=== PATIENT | female | born 1955 | race Caucasian/White ===

== ENCOUNTER → 2020-04-12 10:35 | Outpatient (CLI) | payer OTHER, SELFPAY ==
--- NOTE | ~2020-04-12 | MM_ITS ---
EXAMINATION: MM screening [facility] BI w divina HISTORY: Screening mammogram TECHNIQUE: Craniocaudal and mediolateral oblique 3-D tomosynthesis images were obtained and synthetic 2-D images were generated. CAD analysis was submitted and interpreted. COMPARISON: 11/28/2018, 11/01/2017, 08/01/2016 BREAST PARENCHYMAL COMPOSITION: The breasts are heterogeneously dense, which may obscure small masses . FINDINGS: There is no evidence of suspicious mass, calcification, or architectural distortion to sugg est malignancy in either breast. There has been no suspicious interval change. IMPRESSION: 1. No mammographic evidence of malignancy. 2. Recommend routine screening mammography in one year. BI-RADS Category 1: Negative Reviewed, dictated and finalized at location A.
== END ==
PROVIDERS: Visit Provider Nurse Practitioner
DX: Z12.31 Encounter for screening mammogram for malignant neoplasm of breast (principal)
CPT/HCPCS: 77063; 77067

== ENCOUNTER → 2020-10-25 10:05 | Outpatient (CLI) | payer OTHER, SELFPAY ==
--- NOTE | ~2020-10-25 | XR_ITS ---
EXAMINATION: XR hip RT min 2V DATE: 10/25/2020 10:27 INDICATION: Low back and right hip pain TECHNIQUE: Anteroposterior, frog leg, and cross-table lateral views of right hip were obtained. COMPARISON: None. FINDINGS: Bone alignment is normal. There is no fracture. Mild osteoarthritis is noted in the hip. Th ere are phleboliths of the pelvis. The soft tissues are otherwise unremarkable. IMPRESSION: 1. Mild hip osteoarthritis. Reviewed, dictated and finalized at location A. E DEFECT CHARTING CLERK IMPRESSION: 1. Mild hip osteoarthritis.
--- NOTE | ~2020-10-25 | XR_ITS ---
EXAMINATION: XR lumbar spine 2-3V DATE: 10/25/2020 10:27 INDICATION: Low back pain TECHNIQUE: Anteroposterior and lateral views of the lumbar spine, and cone-down lateral view of the l umbosacral junction were obtained. COMPARISON: None. FINDINGS: There is no fracture, dislocation, or subluxation. The vertebral body heights are normal. T here is moderate loss of intervertebral disc space height at L5-S1 and mild loss of intervertebral di sc space height at L2-3. The bowel gas pattern is normal. There are phleboliths of the pelvis. IMPRESSION: 1. Mild lumbar spondylosis without acute findings. Reviewed, dictated and finalized at location A. /VAULT SUPERVISOR
== END ==
PROVIDERS: PCP Emergency Medicine; Visit Provider Emergency Medicine
DX: M54.5 Low back pain (principal); M25.551 Pain in right hip; M16.11 Unilateral primary osteoarthritis, right hip; M47.816 Spondylosis without myelopathy or radiculopathy, lumbar region
CPT/HCPCS: 72100; 73502

== ENCOUNTER → 2021-10-02 10:52 | Outpatient (CLI) | payer OTHER, SELFPAY ==
--- NOTE | ~2021-10-02 | MM_ITS ---
EXAMINATION: MM screening [facility] w div[facility] HISTORY: Screening TECHNIQUE: Craniocaudal and mediolateral oblique 3-D tomosynthesis images were obtained and synthetic 2-D images were generated. CAD analysis was submitted and interpreted. COMPARISON: Comparison to multiple prior studies sequentially, with oldest reviewed study dated 07/09. BREAST PARENCHYMAL COMPOSITION: Breast composed of scattered areas of fibroglandular density FINDINGS: There is no evidence of suspicious mass, calcification, or architectural distortion to sugg est malignancy in either breast. There has been no suspicious interval change. IMPRESSION: 1. No mammographic evidence of malignancy. 2. Recommend routine screening mammography in one year. BI-RADS Category 1: Negative Reviewed, dictated and finalized at location A. ASSEMBLER
== END ==
PROVIDERS: Visit Provider Obstetrics & Gynecology Gynecology
DX: Z12.31 Encounter for screening mammogram for malignant neoplasm of breast (principal)
CPT/HCPCS: 77063; 77067

== ENCOUNTER → 2022-03-03 15:35 | Outpatient (CLI) | payer OTHER, SELFPAY ==
--- NOTE | ~2022-03-03 | DEXA_ITS ---
Bone Density Report Name: CHULA WALTERS Age: 66 Sex: Female Ethnicity: White Date of : 1955 Indication: postmenopausal; screening for osteoporosis; height loss; Referring Provider: JEFFERSON HENSON Study: Bone densitometry was performed. Exam Date: March 03, 2022 Accession number: [id number] Bone Density: Region BMD T-score Z-score Classification AP Spine (L1-L4) 0.917 -1.2 0.6 Osteopenia Femoral Neck (Left) 0.632 -2.0 -0.5 Osteopenia Total Hip (Left) 0.797 -1.2 0.0 Osteopenia Femoral Neck (Right) 0.673 -1.6 -0.1 Osteopenia Total Hip (Right) 0.820 -1.0 0.2 Normal Total Hip Mean 0.809 -1.1 0.1 Osteopenia World Health Organization criteria for BMD impression classify patients as: Normal (T-score at or above -1.0), Osteopenia (T-score between -1.0 and -2.5), or Osteoporosis (T-score at or below -2.5). 10-year Fracture Risk(1): Major Osteoporotic Fracture 10% Hip Fracture 1.4% Reported Risk Factors: [place] (), Neck BMD=0.632, BMI=27.3 (1) FRAX(R) Version 3.08. Fracture probability calculated for an untreated patient. Fracture probability may be lower if the patient has received treatment. Clinical Information Provided by Patient: Has used the following medications: Vitamin D, Calcium Patient maximum height was 66 Menopause Age: 57 Onset of menses at age 14 Number of children 1 Missed period for more than 6 months in a row Impression: The patient has low bone mass, based on the Left Femoral Neck T-score. The patient has an estimated ten-year risk of hip fracture of 1.4% and an estimated ten-year risk of major fracture of 10%, based on the WHO FRAX algorithm. Discussion: BONE DENSITY IS LOW AT ONE OR MORE SKELETAL SITES. This patient's lowest T-score is low at one or more skeletal sites. It meets the World Health Organization's (WHO) criteria for ?low bone mass? (T-score between -1.0 and -2.5). The patient's 10-year risk of fracture as calculated by FRAX is less than the threshold where pharmacological therapy is recommended by the National Osteoporosis Foundation (NOF). However, all treatment decisions require clinical judgment and consideration of individual patient factors, including patient preferences, comorbidities, previous drug use, risk factors not captured in the FRAX model (e.g., frailty, falls, vitamin D deficiency, increased bone turnover, interval significant decline in bone density) and possible under or overestimation of fracture risk by FRAX. The patient should follow a healthful lifestyle (good nutrition with adequate calcium and vitamin D, and appropriate weight-bearing exercise). Follow-Up: Consider repeating this study in 2 to 3 years to reassess this patient's status, or sooner if there is some new clinical indication. Reported by: ARELIS on 03/03/2022
== END ==
PROVIDERS: PCP Obstetrics & Gynecology Gynecology; Visit Provider Obstetrics & Gynecology Gynecology
DX: Z78.0 Asymptomatic menopausal state (principal); M85.88 Other specified disorders of bone density and structure, other site; M85.852 Other specified disorders of bone density and structure, left thigh; M85.851 Other specified disorders of bone density and structure, right thigh
CPT/HCPCS: 77080

== ENCOUNTER → 2023-03-11 12:27 | Outpatient (CLI) | payer MEDICARE, OTHER, SELFPAY ==
--- NOTE | ~2023-03-11 | MM_ITS ---
EXAMINATION: MM screening [facility] BI w divina HISTORY: Screening mammogram TECHNIQUE: Craniocaudal and mediolateral oblique 3-D tomosynthesis images were obtained and synthetic 2-D images were generated. CAD analysis was submitted and interpreted. COMPARISON: 10/02/2021, 04/12/2020, 11/28/2018 BREAST PARENCHYMAL COMPOSITION: The breasts are heterogeneously dense, which may obscure small masses . FINDINGS: No suspicious mass, calcification, or architectural distortion are identified in either hunter ast to suggest malignancy. There has been no suspicious interval change. IMPRESSION: 1. No mammographic evidence of malignancy. 2. Recommend routine screening mammography in one year. BI-RADS Category 1: Negative Reviewed, dictated and finalized at location A.
== END ==
PROVIDERS: PCP Nurse Practitioner; Visit Provider Nurse Practitioner
DX: Z12.31 Encounter for screening mammogram for malignant neoplasm of breast (principal)
CPT/HCPCS: 77063; 77067

== ENCOUNTER 2024-09-29 09:47 | Outpatient (CLI) | payer MEDICARE, OTHER, SELFPAY ==
--- OUTSIDE RECORDS SUMMARY | 2024-09-29 10:02 | XMS_ITS | Encounter Summary ---
Author Organization [facility] Address [address] [place] [id number] Care Team Providers Care Coding Clerks Supervisor Name Role Phone Adilene Dillard MD Primary Care Provider Encounter Details Date Type Department Care Team (Late st Contact Info) Description 11/01/2023 CarZumer Message Enc [facility] Medical [facility] - [address] [place], [place] [id number] [facility] test results Social History Tobacco Use Types Packs/Day Years Used Date Smoking Tobacco: Former Cigarettes 1 8 - 1982 Passive Smoke Exposure: Never Smokeless Tobacco: Never Comments:Counseled by Dr. Karyna fagan. Alcohol Use Standard Drinks/Week Comments Not Currently 0 (1 standard drink = 0.6 oz pur e alcohol) PHQ-2 Answer Date Recorded Patient Health Questionnaire-2 Score 2 10/15/2023 Comments Unknown Sex and Gender Information Value Date Recorded Sex Assigned at Female 11/05/2023 10:40 AM CDT Legal Sex Female 10:36 AM NAIL EXPERT Gender Identity Female 11/05/2023 10:40 AM CDT Sexual Orientation Straight 11/05/2023 10 :40 AM CDT documented as of this encounter Plan of Treatment Upcoming Encounters Date Type Department Care Team (Late st Contact Info) Description 11/06/2024 10:20 AM CDT Office Visit [facility] Medical [facility] - [address] [place], [place] [id number] Adilene Dillard MD [address] [place] [address] [address] [place], [place] [id number] documented as of this encounter Visit Diagnoses Not on filedocumented in this encounter Additional Health Concerns Assessment Noted Time PHQ-9 Depression Total Score: 5 10/15/19 24 11:33 AM NAIL EXPERT documented as of this encounter Care Teams Coding Clerks Supervisor Relationship Specialty Start Date End Date Adilene Dillard MD [facility] [address] [address] PCP - General INTERNAL MEDICINE 08/30/23 documented as of this encounter
--- OUTSIDE RECORDS SUMMARY | 2024-09-29 10:02 | XMS_ITS | Patient Health Summary ---
Author Organization [facility] Address [address] [place] [address] Care Team Providers Care Tool Maker Apprentice Name Role Phone Mayra Aguilar MD Primary Care Provider Note from [facility],non-owned Affiliates and Associated Physician Practices is amultiple site organization consisting of ambulatory clinics and hospital sitesin [place], [place], [place] and [place]. This disclosure is being madepursuant to the Care Everywhere program and may not contain all information available regarding this patient. Last updated 18.[facility] Allergies * Meperidine(Nausea and/or Vomiting) -High Criticality Medications * Be aware that medications may not be up to date on this document. Alwaysverify current medications with the patient. * norethindrone-ethinyl estradiol (JEVANTIQUE) 1-5 MG-MCG tablet Take 1 Tab by mouth once daily. * diclofenac sodium (VOLTAREN) 75 MG tablet(Started 07/17/2011) Take 1 Tab by mouth 2 times daily. May resume on 07/27 * cyclobenzaprine (FLEXERIL) 10 MG tablet(Started 07/17/2011) Take 1 Tab by mouth every 8 hours as needed for Muscle Spasms. * Escitalopram Oxalate (LEXAPRO PO) Active Problems No known active problems Social History Tobacco Use Types Packs/Day Years Used Date Smoking Tobacco: Former Cigarettes 0.5 10 Smokeless Tobacco: Never Alcohol Use Standard Drinks/Week Comments Yes 0 (1 standard drink = 0.6 oz pur e alcohol) rarely Sex and Gender Information Value Date Recorded Sex Assigned at Not on file Gender Identity Not on file Sexual Orientation Not on file Last Filed Vital Signs Vital Sign Reading Time Taken Comments Blood Pressure 120/70 03/28/2018 2:48 PM CDT Pulse 73 03/28/2018 2:48 PM CDT Temperature 36.8 C (98.2 F) 03/28/2018 2:48 PM CDT Respiratory Rate 16 03/28/2018 2:48 PM CDT Oxygen Saturation 98% 03/28/2018 2:48 PM CDT Inhaled Oxygen Concentration - - Weight 64.9 kg (143 lb) 03/28/2018 2:48 PM CDT Height 167.6 cm (5' 6 ) 03/28/2018 2:48 PM CDT Body Mass Index 23.08 03/28/2018 2:48 PM CDT Procedures * IMAGING/RADIOLOGY/XRAY RESULTS ORDER(Performed 07/21/2011) * LAB RESULTS ORDER(Performed 07/19/2011) * XR LUMBAR SPINE IN OR 1VW(Performed 07/16/2011) Performed for Back pain * CARDIAC EKG ORDER(Performed 07/12/2011) * TYPE SCRN XMATCH RBC X2(Performed 07/08/2011) Performed for Other specified pre-operative examination * IMAGING/RADIOLOGY/XRAY RESULTS ORDER(Performed 06/10/2011) * IMAGING/RADIOLOGY/XRAY RESULTS ORDER(Performed 06/03/2011) Results * IMAGING/RADIOLOGY/XRAY RESULTS ORDER (07/21/2011 1:46 PM PLANTING MATERIAL CARRIER) Only the most recent of3 resultswithin the time period is included. Anatomical Region Laterality Modality Other Narrative 07/19/2011 4:21 PM PLANTING MATERIAL CARRIER A scan was deleted from the Results section by S Interface [[id number]] on 07/21/2011 at 1:46 PM (File: [id number]) Transcriptions Document, Scanned - 07/21/2011 1:46 PM CST Scanned Document IMAGING * LAB RESULTS ORDER (07/19/2011 4:21 PM PLANTING MATERIAL CARRIER) Narrative Transcriptions Document, Scanned - 07/19/2011 4:21 PM CST Scanned Document LAB - THERAPEUTIC DR UG MONITORING ORDERABLES * XR SPINE LUMBAR SINGLE VIEW (07/16/2011 1:57 PM PLANTING MATERIAL CARRIER) Anatomical Region Laterality Modality Spine Radiographic Sylvia ging 07/16/2011 2:03 PM PLANTING MATERIAL CARRIER Narrative 07/16/2011 2:09 PM PLANTING MATERIAL CARRIER INDICATION: Low back pain FINDINGS: Crosstable lateral view of the lumbar spine is obtained intraoperatively. This demonstrates a radiopaque surgical marker at the most caudal fully developed disc space. Disc space narrowing is present at this level. Procedure Note Jolie Cruz MD - 07/16/2011 INDICATION: Low back pain FINDINGS: Crosstable lateral view of the lumbar spine is obtained intraoperatively. This demonstrates a radiopaque surgical marker at the most caudal fully developed disc space. Disc space narrowing is present at this level. Blair Muñoz MD DIAGNOSTIC IMAGING O RDERABLES * CARDIAC EKG ORDER (07/12/2011 1:54 PM PLANTING MATERIAL CARRIER) Narrative Transcriptions Document, Scanned - 07/12/2011 1:54 PM CST Scanned Document CARDIAC SERVICES ORD ERABLES * TYPE SCRN XMATCH RBC X2 (07/08/2011 10:06 AM PLANTING MATERIAL CARRIER) ABO Rh A Pos [facility] Antibody Screen Neg Negative [facility] Number of Units 2 [facility] BLOOD SPECIMEN / Unknown 07/08/2011 10:06 AM PLANTING MATERIAL CARRIER 07/08/2011 11:36 AM PLANTING MATERIAL CARRIER Blair Muñoz MD LAB - BLOOD BANK ORD ERABLES [facility] [address] [place] [address] Care Teams Tool Maker Apprentice Relationship Specialty Start Date End Date Mayra Aguilar MD [address] [facility] [address] [place] [phone] PCP - General Family Medicine 07/01/11
--- OUTSIDE RECORDS SUMMARY | 2024-09-29 10:02 | XMS_ITS | Clinical Summary ---
Author Organization [facility] Address [address] [place] [address] Care Team Providers Care Mail Handler Equipment Operator Name Role Phone Mayra Aguilar MD Primary Care Provider Source Comments [facility] Affiliates and Associated Physician Practices is amultiple site organization consisting of ambulatory clinics and hospital sitesin [place], [place], [place] and [place]. This disclosure is being madepursuant to the Care Everywhere program and may not contain all information available regarding this patient. Last updated 18.[facility] Allergies Active Allergy Reactions Criticality Noted Date Comments Meperidine Nausea and/or Vomiting High 07/08/2011 Medications * Be aware that medications may not be up to date on this document. Alwaysverify current medications with the patient. Medication Sig Dispensed Refills Start Date End Date Status norethindrone-ethinyl estradiol (JEVANTIQUE) 1-5 MG-MCG tablet Take 1 Tab by mouth once daily. Active diclofenac sodium (VOLTAREN) 75 MG tablet Take 1 Tab by mouth 2 times daily. May resume on 07/27 60 Tab 07/17/2011 Active cyclobenzaprine (FLEXERIL) 10 MG tablet Take 1 Tab by mouth every 8 hours as needed for Muscle Spasms. 42 0 07/17/2011 Active Escitalopram Oxalate (LEXAPRO PO) Active Active Problems No known active problems Family History Medical History Relation Name Comments Migraine Brother 4 Asthma Brother 5 Heart Failure Father Migraine Father Diabetes Maternal Grandfather Stroke Maternal Grandfather Cancer Maternal Grandmother Heart Failure Maternal Grandmother Arthritis - Osteo Mother Arthritis - Rheumatoid Mother Migraine Sister 2 Relation Name Status Comments Brother 1 Alive Brother 2 Alive Brother 3 Alive Brother 4 Brother 5 Father Maternal Grandfather Maternal Grandmother Mother Sister 1 Alive Sister 2 Social History Tobacco Use Types Packs/Day Years [...] Mass Index 23.08 03/28/2018 2:48 PM CDT Plan of Treatment Health Maintenance Due Date Last Done Comments BONE DENSITY TESTING 1955 COLOGUARD (AGES 45-75) - COL ON CA SCREENING 1955 COLON MONITORING 1955 COLONOSCOPY - COLON CA SCREENING 1955 CT COLONOGRAPHY - COLON CA SCREENING 1955 Colorectal Cancer Screening 1955 FIT - COLON CA SCREENING 1955 FLEX SIG - COLON CA SCREENING 1955 LIPID TESTING 1955 MAMMOGRAM 1955 HEPATITIS C SCREENING 06/26/1975 DTAP/TDAP/TD VACCINES (1 - Tdap) 1976 PNEUMOCOCCAL VACCINE 50+ (1 of 1 - PCV) 2007 ZOSTER VACCINE (1 of 2) 2007 COVID-19 VACCINE ( - 2023-2 5 season) 2024 INFLUENZA VACCINE (#1) 2024 DEPRESSION SCREENING 08/16/2024 Respiratory Syncytial Virus (RSV) Vaccine Pt: or over 60 yrs (1 - 1-dose 75+ series) 2032 HEPATITIS B VACCINE Aged Out No longe r eligible based on patient's age to complete this topic HIB VACCINE Aged Out No longer eligi ble based on patient's age to complete this topic HPV VACCINE Aged Out No longer eligi ble based on patient's age to complete this topic MENINGOCOCCAL (Group B) VACCINE Aged Out No longer eligible based on patient's age to complete this topic MENINGOCOCCAL VACCINE Aged Out No liliana deana eligible based on patient's age to complete this topic Advance Directives * FULL RESUSCITATION (Latest Code Status on File) Date Activated Date Inactivated Comments 07/16/2011 6:36 PM 07/18/2011 1:03 AM Care Teams Mail Handler Equipment Operator Relationship Specialty Start Date End Date Mayra Aguilar MD [address] [place] [address] [address] [place] [phone] PCP - General Family Medicine 07/01/11
--- OUTSIDE RECORDS SUMMARY | 2024-09-29 10:02 | XMS_ITS | Clinical Summary ---
Author Organization [facility] Address [address] [place] [address] Care Team Providers Care Cone Operator Name Role Phone Adilene Dillard MD Primary Care Provider [phone] Allergies Active Allergy Reactions Criticality Noted Date Comments Meperidine Nausea and Vomiting High 07/08/2011 Morphine Sulfate Headache Low 01/05/2019 Propranolol Other (see comment) 11/04/2023 Just did not feel well Medications hydrOXYzine (VISTARIL) 25 MG capsuleIndication s:BRANDON (generalized anxiety disorder) Take 1 capsule (25 mg total) by mouth daily. 90 capsule 1 4 Active vitamin D2, ergocalciferol, (DRISDOL) 1.25 mg capsuleIndication s:Vitamin D deficiency Take 1 capsule (1.25 mg total) by mouth every 7 days. 12 capsule 3 4 Active escitalopram (LEXAPRO) 20 MG tabletIndications :Mild episode of recurrent major depressive disorder (CMS/HCC),BRANDON (generalized anxiety disorder) Take 1 tablet (20 mg total) by mouth daily. 90 tablet 1 4 Active triamcinolone (KENALOG) 0.1 % creamIndications: Flexural eczema Apply topically 2 (two) times daily. 453.6 g 4 Active losartan (COZAAR) 25 MG tabletIndications :Primary hypertension Take 1 tablet (25 mg total) by mouth daily. 90 tablet 1 4 Active Active Problems Problem Noted Date Diagnosed Date Primary hypertension 10/15/2023 Anxiety 01/05/2019 Encounters Date Type Department Care Team Description 08/02/2024 Telephone [facility] Medical Group Multispecialty Care - [address] [place] [address] Adilene Dillard MD Appointment Request (AWV- Left message) from Last 3 Months Immunizations Name Administration Dates Next Due Influenza (Generic) 06/09/2021,06/04/2014,2012 Influenza Adult (Generic) 04/21/2024,06/15/2023, 07/13/2022,06/24/2015 Pneumococcal (Pneumovax 23) 10/29/2023 Shingrix 12/15/2021,10/17/2021 Tdap (Generic) 01/23/2019 Family History Medical History Relation Comments Heart Disease Father Hypertension Father Cancer Maternal Grandmother Diabetes Paternal Grandfather Relation Status Comments Father Maternal Grandmother Paternal Grandfather Social History Tobacco Use Types Packs/Day Years Used Date Smoking Tobacco: Former Cigarettes 1982 Passive Smoke Exposure: Never Smokeless Tobacco: Never Tobacco Cessation:Counseling Given: Yes Comments:Counseled by Dr. Dillard. 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 Gender Identity Female 11/05/2023 10:40 AM CDT Sexual Orientation Straight 11/05/2023 10 :40 AM CDT Last Filed Vital Signs Vital Sign Reading Time Taken Comments Blood Pressure 134/82 06/13/2024 11:50 AM CDT Pulse 68 06/13/2024 11:39 AM CDT Temperature 36.3 C (97.3 F) 06/13/2024 11:39 AM CDT Respiratory Rate 18 06/13/2024 11:39 AM CDT Oxygen Saturation 99% 06/13/2024 11:39 AM CDT Inhaled Oxygen Concentration - - Weight 66.4 kg (146 lb 6.4 oz) 06/13/2024 11:39 AM CDT Height 166.4 cm (5' 5.5 ) 06/13/2024 11:39 AM CD T Body Mass Index 23.99 06/13/2024 11:39 AM CDT Plan of Treatment Upcoming Encounters Date Type Department Care Team (Late st Contact Info) Description 11/06/2024 10:20 AM CDT Office Visit [facility] Medical Group Multispecialty Care - [address] [place] [address] Adilene Dillard MD [address] [place] [address] Health Maintenance Due Date Last Done Comments Mammogram Screening 1997 Annual Medicare Wellness Visit 2022 Dexa Scan (General) 2022 COVID-19 Vaccine ( season) 2024 06/15/2023, 07/13/2022, 01/09/2022, Additional history exists PHQ-2 (Physician Hegins) 08/16/2024 04/21/2024 Pneumococcal Vaccine: 65+ Years (2 of 2 - PCV) 10/28/2024 10/29/2023 Colorectal Cancer Screening FIT-DNA (3 Years) 03/03/2027 03/03/2024, 03/03/2024 DTaP, Tdap and Td Vaccines (2 - Td or Tdap) 01/23/2029 01/23/2019 RSV Immunization or 60+ Years (1 - 1-dose 75+ series) 2032 Zoster Vaccines Completed 12/15/2021, 10/17/2021 Hepatitis C Completed 10/29/2023 Influenza Adult Completed 04/21/2024, 05/18, 07/13/2022, Additional history exists Meningococcal B Vaccine Aged Out No l onger eligible based on patient's age to complete this topic Meningococcal Vaccine Aged Out No liliana deana eligible based on patient's age to complete this topic RSV Immunizations Under 20 Months Aged Out No longer eligible based on patient's age to complete this topic Procedures Procedure Name Priority Date/Time Associated Diagnosis Comments COLOGUARD (EXACT SCIENCE) Routine 03/03/2024 10:00 AM CDT Screen for colon cancer HEPATITIS C ANTIBODY Routine 10/29/2023 7:41 AM CDT General medical exam from Last 3 Months or Most Recently Relevant to Health Maintenance Results * COLOGUARD (EXACT SCIENCE) (03/03/2024 10:00 AM CDT) COLOGUARD RESULT Negative Negative [facility] [employer] (CLIA #:[id number]) Comment: NEGATIVE TEST RESULT. A negative Cologuard result indicates a low likelihood that a colorectal cancer (CRC) or advanced adenoma (adenomatous polyps with more advanced pre-malignant features) is present. The chance that a person with a negative Cologuard test has a colorectal cancer is less than 1 in 1500 (negative predictive value >99.9%) or has an advanced adenoma is less than 5.3% (negative predictive value 94.7%). These data are based on a prospective cross-sectional study of 10,000 individuals at average risk for colorectal cancer who were screened with both Cologuard and colonoscopy. (Ander Bullard et al, N Engl J Med 2014;370(14):3843-9798) The normal value (reference range) for this assay is negative. COLOGUARD RE-SCREENING RECOMMENDATION: Periodic colorectal cancer screening is an important part of preventive healthcare for asymptomatic individuals at average risk for colorectal cancer. Following a negative Cologuard result, the [place] Cancer Society and U.S. Multi-Society Task Force screening guidelines recommend a Cologuard re-screening interval of 3 years. References: [place] Cancer Society Guideline for Colorectal Cancer Screening: https://www.cancer.org/cancer/qjyzn-jvjeqv-fmiyii/fwhqayexj-frmodtbvw-zgupqmv/ac s-rec ommendations.html.; Jeff AVENDANO, Nicole CR, Sidney MyrickK, Colorectal Cancer Screening: Recommendations for Physicians and Patients from the U.S. Multi-Society Task Force on Colorectal Cancer Screening , Am J Gastroenterology 2017; 112:0164-8728. TEST DESCRIPTION: Composite algorithmic analysis of stool DNA-biomarkers with hemoglobin immunoassay. Quantitative values of individual biomarkers are not reportable and are not associated with individual biomarker result reference ranges. Cologuard is intended for colorectal cancer screening of adults of either sex, 45 years or older, who are at average-risk for colorectal cancer (CRC). Cologuard has been approved for use by the U.S. FDA. The performance of Cologuard was established in a cross sectional study of average-risk adults aged 50-84. Cologuard performance in patients ages 45 to 49 years was estimated by sub-group analysis of near-age groups. Colonoscopies performed for a positive result may find as the most clinically significant lesion: colorectal cancer [4.0%], advanced adenoma (including sessile serrated polyps greater than or equal to 1cm diameter) [20%] or non- advanced adenoma [31%]; or no colorectal neoplasia [45%]. These estimates are derived from a prospective cross-sectional screening study of 10,000 individuals at average risk for colorectal cancer who were screened with both Cologuard and colonoscopy. (Ander Urias al, N Engl J Med 2014;370(14):4391-5396.) Cologuard may produce a false negative or false positive result (no colorectal cancer or precancerous polyp present at colonoscopy follow up). A negative Cologuard test result does not guarantee the absence of CRC or advanced adenoma (pre-cancer). The current Cologuard screening interval is every 3 years. ([place] Cancer Society and U.S. Multi-Society Task Force). Cologuard performance data in a 10,000 patient pivotal study using colonoscopy as the reference method can be accessed at the following location: www.MetaCDN/results. Additional description of the Cologuard test process, warnings and precautions can be found at www.cologuard.com. STOOL STOOL SPECIMEN / Unknown 03/03/2024 10:00 AM CDT 03/04/2024 1:11 PM CDT us Adilene Dillard MD BODY FLUIDS AND STOOLS ORDERABLE S Final Result [facility] ([facility]) [address] [place] [address], [facility] [employer] (CLIA #:[id number]) [address] [place] [address] * HEPATITIS C ANTIBODY (10/29/2023 7:41 AM CDT) HEPATITIS C AB NON-REACTI VE NON-REACT TRUE 10/29/2023 6:25 PM CDT [facility] Comment: ANTIBODIES TO HCV NOT DETECTED. DOES NOT EXCLUDE THE POSSIBILITY OF EXPOSURE TO HCV. 10/29/2023 7:41 AM CDT Adilene Dillard MD LABORATORY Final Result [facility] [address] [place] [address], [place] [phone] [id number] from Last 3 Months or Most Recently Relevant to Health Maintenance Insurance MEDICARE [facility] Care Teams Cone Operator Relationship Specialty Start Date End Date Adilene Dillard MD [address] [place] [address] PCP - General INTERNAL MEDICINE 1/15/24
--- OUTSIDE RECORDS SUMMARY | 2024-09-29 10:02 | XMS_ITS | Referral Summary ---
Author Organization [facility] [employer] Address [address] [facility] [place] [address] Care Team Providers Care Manager Of Learning Name Role Phone Mayra Aguilar MD Primary Care Provider Source Comments [facility],non-kindred hospital Affiliates and Associated Physician Practices is amultiple site organization consisting of ambulatory clinics and hospital sitesin [place], [place], [place] and [place]. This disclosure is being madepursuant to the Care Everywhere program and may not contain all information available regarding this patient. Last updated 18.[facility] [employer] Allergies Active Allergy Reactions Criticality Noted Date [...] Active Active Problems No known active problems Social [...] 03/28/2018 2:48 PM CDT Plan of Treatment Not on file Advance Directives * FULL RESUSCITATION (Latest Code Status on File) Date Activated Date Inactivated Comments 07/16/2011 6:36 PM 07/18/2011 1:03 AM Care Teams Manager Of Learning Relationship Specialty Start Date End Date Mayra Aguilar MD [address] [facility] [address] [place] [address] PCP - General Family Medicine 07/01/11
--- NOTE | 2024-09-29 10:09 | ECG_ITS ---
Test Date: 2024-09-29 10:14:46 Measurements Intervals [place] Rate: 64 P: 29 LA: 132 QRS: 16 QRSD: 93 T: 23 QT: 428 QTc: 445 Interpretive Statements SINUS RHYTHM NORMAL ECG No previous ECG available for comparison Electronically Signed On 09-29-2024 10:27:45 OVEN ROASTER by Armando Marks D.O.
== END 2024-09-29 09:48 | disposition home or self-care (01) ==
LOC: ANHCARD 09:51
PROVIDERS: PCP Nurse Practitioner; Visit Provider Nurse Anesthetist, Certified Registered
DX: Z01.818 Encounter for other preprocedural examination (principal)
CPT/HCPCS: 93005

== ENCOUNTER 2025-02-13 10:04 | Outpatient (CLI) | payer MEDICARE, OTHER, SELFPAY ==
--- NOTE | ~2025-02-13 | MM_ITS ---
EXAMINATION: MM screening [facility] BI w diivna HISTORY: Screening mammogram TECHNIQUE: Craniocaudal and mediolateral oblique 3-D tomosynthesis images were obtained and synthetic 2-D images were generated. CAD analysis was submitted and interpreted. COMPARISON: 03/11/2023, 10/02/2021, 04/12/2020 BREAST PARENCHYMAL COMPOSITION:Not Dense. There are scattered areas of fibroglandular density. FINDINGS: No suspicious mass, calcification, or architectural distortion are identified in either hunter ast to suggest malignancy. There has been no suspicious interval change. IMPRESSION: No mammographic evidence of malignancy. Recommend routine screening mammography in one year. BI-RADS Category 1: Negative Reviewed, dictated and finalized at location .
--- OUTSIDE RECORDS SUMMARY | 2025-02-13 10:17 | XMS_ITS | Clinical Summary ---
Author Organization [facility] Address [address] [place] [address] Care Team Providers Care Associate Professor Name Role Phone Adilene Dillard MD Primary Care Provider [phone] Allergies Active Allergy Reactions Criticality Noted Date Comments Meperidine Nausea and Vomiting High 07/08/2011 Morphine Sulfate Headache Low 01/05/2019 Propranolol Other (see comment) 11/04/2023 Just did not feel well Medications triamcinolone (KENALOG) 0.1 % creamIndications :Flexural eczema Apply topically 2 (two) times daily. 453.6 g 4 Active vitamin D2, ergocalciferol, (DRISDOL) 1.25 mg capsuleIndicatio ns:Vitamin D deficiency Take 1 capsule (1.25 mg total) by mouth every 7 days. 12 capsule 3 5 Active hydrOXYzine (VISTARIL) 25 MG capsuleIndicatio ns:BRANDON (generalized anxiety disorder) Take 1 capsule (25 mg total) by mouth 2 (two) times a day. 180 capsule 5 Active escitalopram (LEXAPRO) 20 MG tabletIndication s:BRANDON (generalized anxiety disorder),Mild episode of recurrent major depressive disorder Take 1 tablet (20 mg total) by mouth daily. Appointment with provider November 2024. 90 tablet 1 5 Active escitalopram (LEXAPRO) 10 MG tabletIndication s:BRANDON (generalized anxiety disorder),Mild episode of recurrent major depressive disorder Take 1 tablet (10 mg total) by mouth daily. Take a total of 30 mg daily. 90 tablet 1 5 Active losartan (COZAAR) 25 MG tabletIndication s:Primary hypertension Take 1 tablet (25 mg total) by mouth daily. 90 tablet 1 Active Active Problems Problem Noted Date Diagnosed Date Primary hypertension 10/15/2023 Anxiety 01/05/2019 Encounters Date Type Department Care Team Description 12/06/2024 10:00 AM CDT Office Visit [facility] Medical Group Multispecialty Care - [address] [place] [address] Adilene Dillard MD Anxiety; Depression; Hypertension 12/06/2024 Travel from Last 3 Months Immunizations Immunization Administration Dates Next Due Influenza (Generic) 06/09/2021,06/04/2014,2012 Influenza Adult (Generic) 04/21/2024,06/15/2023, 07/13/2022,06/24/2015 Pneumococcal (Pneumovax 23) 10/29/2023 Pneumococcal (Prevnar 20) 11/06/2024 Shingrix 12/15/2021,10/17/2021 Tdap (Generic) 01/23/2019 Family History Medical History Relation Comments Heart Disease Father Hypertension Father Cancer Maternal Grandmother Diabetes Paternal Grandfather Relation Status Comments Father Maternal Grandmother Paternal Grandfather Social History Tobacco Use Types Packs/Day Years Used Date Smoking Tobacco: Former Cigarettes 1 - 1982 Passive Smoke Exposure: Never Smokeless Tobacco: Never Tobacco Cessation:Counseling Given: Yes Comments:Counseled by Dr. Dillard. 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 Gender Identity Female 11/05/2023 10:40 AM CDT Sexual Orientation Straight 11/05/2023 10 :40 AM CDT Last Filed Vital Signs Vital Sign Reading Time Taken Comments Blood Pressure 138/81 12/06/2024 10:17 AM CDT Pulse 75 12/06/2024 10:07 AM CDT Temperature 36.5 C (97.7 F) 12/06/2024 10:07 AM CDT Respiratory Rate 18 11/06/2024 10:24 AM CDT Oxygen Saturation 100% 12/06/2024 10:07 AM CDT Inhaled Oxygen Concentration - - Weight 69.2 kg (152 lb 9.6 oz) 12/06/2024 10:07 AM CDT Height 166.4 cm (5' 5.5) 12/06/2024 10:07 AM CD T Body Mass Index 25.01 12/06/2024 10:07 AM CDT Plan of Treatment Upcoming Encounters Date Type Department Care Team (Late st Contact Info) Description 05/07/2025 10:20 AM CDT Office Visit [facility] Medical Group Multispecialty Care - [place] [address] [facility] [address] [place], [place] [id number] Adilene Dillard MD [address] [facility] [address] [place], [place] [id number] Health Maintenance Due Date Last Done Comments Mammogram Screening 1997 Dexa Scan (General) 2022 COVID-19 Vaccine ( season) 2024 06/15/2023, 07/13/2022, 01/09/2022, Additional history exists Annual Medicare Wellness Visit 10/11/2025 Postponed from 2022 (Patient Refused) Colorectal Cancer Screening FIT-DNA (3 Years) 03/03/2027 03/03/2024, 03/03/2024 DTaP, Tdap and Td Vaccines (2 - Td or Tdap) 01/23/2029 01/23/2019 RSV Immunization or 60+ Years (1 - 1-dose 75+ series) 2032 Zoster Vaccines Completed 12/15/2021, 10/17/2021 Hepatitis C Completed 10/29/2023 Pneumococcal Vaccine: 50+ Years Completed 11/06/2024, 10/29/2023 PHQ-2 (Physician [place]) Completed 12/06/2024 Meningococcal B Vaccine Aged Out No l [...] 10:00 AM CDT) COLOGUARD RESULT Negative Negative [employer] (CLIA #:[id number]) Comment: NEGATIVE TEST RESULT. A negative Cologuard [...] (Ander Urias al, N Engl J Med 2014;370(14):4848-5536) The normal value (reference range) for this assay is negative. COLOGUARD RE-SCREENING RECOMMENDATION: Periodic colorectal cancer screening is an important part of preventive healthcare for asymptomatic individuals at average risk for colorectal cancer. Following a negative Cologuard result, the [place] Cancer Society and U.S. Multi-Society Task Force screening guidelines recommend a Cologuard re-screening interval of 3 years. References: [place] Cancer Society Guideline for Colorectal Cancer Screening: https://www.cancer.org/cancer/yukkk-suqtha-ungyhe/esqsfhihq-gbhlfpfod-xbvuagb/ac s-rec ommendations.html.; Jeff AVENDANO, Nicole WHITEHEAD, Sidney GO, Colorectal Cancer Screening: Recommendations for Physicians and Patients from the U.S. Multi-Society Task Force on Colorectal Cancer Screening , Am J Gastroenterology 2017; 112:1176-6959. TEST DESCRIPTION: Composite algorithmic analysis of stool [...] Bullard et al, N Engl J Med 2014;370(14):0335-2602.) Cologuard may produce a false negative or false positive result (no colorectal cancer or precancerous polyp present at colonoscopy follow up). A negative Cologuard test result does not guarantee the absence of CRC or advanced adenoma (pre-cancer). The current Cologuard screening interval is every 3 years. ([place] Cancer Society and U.S. Multi-Society Task Force). Cologuard performance data in a 10,000 patient pivotal study using colonoscopy as the reference method can be accessed at the following location: www.[employer]/results. Additional description of the Cologuard test process, warnings and precautions can be found at www.Helloworldrd.com. STOOL STOOL SPECIMEN / Unknown 03/03/2024 10:00 AM CDT 03/04/2024 1:11 PM CDT us Adilene Dillard MD BODY FLUIDS AND STOOLS ORDERABLE S Final Result [facility] ([facility]) [address] [place] [address], [facility] (CLIA #:[id number]) [address] [place] [address] * HEPATITIS C ANTIBODY (10/29/2023 7:41 AM CDT) HEPATITIS C AB NON-REACTI VE NON-REACT TRUE 10/29/2023 6:25 PM CDT [facility] Comment: ANTIBODIES TO HCV NOT DETECTED. DOES NOT EXCLUDE THE POSSIBILITY OF EXPOSURE TO HCV. 10/29/2023 7:41 AM CDT Adilene Dillard MD LABORATORY Final Result Performing Organization Address City/State/[facility] Co de Phone Number [facility] [address] [place] [address], [id number] from Last 3 Months or Most Recently Relevant to Health Maintenance Insurance MEDICARE [facility] Care Teams Associate Professor Relationship Specialty Start Date End Date Adilene Dillard MD [address] [address] PCP - General INTERNAL MEDICINE 08/30/23
--- OUTSIDE RECORDS SUMMARY | 2025-02-13 10:17 | XMS_ITS | Encounter Summary ---
Author Organization [facility] Address [address] [place] [address] Care Team Providers Care Medical Research Assistant Name Role Phone Adilene Dillard MD Primary Care Provider [phone] Encounter Details Date Type Department Care Team (Late st Contact Info) Description 11/01/2023 Move In History Message Enc [facility] Medical [facility] - [address] [place], [place] [phone] [facility] test results Social History Tobacco Use Types Packs/Day Years Used Date Smoking Tobacco: Former Cigarettes 1 8 1982 Passive Smoke Exposure: Never Smokeless Tobacco: Never Comments:Counseled by Dr. Karyna fagan. 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 Gender Identity Female 11/05/2023 10:40 AM CDT Sexual Orientation Straight 11/05/2023 10 :40 AM CDT documented as of this encounter Plan of Treatment Upcoming Encounters Date Type Department Care Team (Late st Contact Info) Description 05/07/2025 10:20 AM CDT Office Visit [facility] Medical [facility] Multispecialty [facility] - [address] [place], [place] [address] Adilene Dillard MD [address] [place] [address] [address] [place], [place] [id number] documented as of this encounter Visit Diagnoses Not on filedocumented in this encounter Additional Health Concerns Assessment Noted Time PHQ-9 Depression Total Score: 5 10/15/19 24 11:33 AM POULTRY RAISER documented as of this encounter Care Teams Medical Research Assistant Relationship Specialty Start Date End Date Adilene Dillard MD [facility] [address] PCP - General INTERNAL MEDICINE 08/30/23 documented as of this encounter
--- OUTSIDE RECORDS SUMMARY | 2025-02-13 10:17 | XMS_ITS | Clinical Summary ---
Author Organization [facility] [employer] Address [address] [facility] [place] [address] Care Team Providers Care Geotechnicial Properties Technician Name Role Phone Mayra Aguilar MD Primary Care Provider Source Comments [facility],non-[facility]red hospital Affiliates and Associated Physician Practices is amultiple site organization consisting of ambulatory clinics and hospital sitesin [place], [place], [place] and [place]. This disclosure is being madepursuant to the Care Everywhere program and may not contain all information available regarding this patient. Last updated 18.[facility] [employer] Allergies Active Allergy Reactions Criticality Noted Date Comments Meperidine Nausea and/or Vomiting High 07/08/2011 Medications * Be aware that medications may not be up to date on this document. Alwaysverify current medications with the patient. 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 on file Not on file Last Filed Vital Signs [...] 2:48 PM CDT Height 167.6 cm (5' 6) 03/28/2018 2:48 PM CDT Body Mass Index [...] VACCINE (1 of 2) 2007 COVID-19 VACCINE (1 - 2023-2 5 season) 2024 DEPRESSION SCREENING 08/16/2024 INFLUENZA VACCINE (Season Ended) 2025 Respiratory Syncytial Virus (RSV) Vaccine Pt: or [...] to complete this topic MENINGOCOCCAL (Group B) VACC INE SHARED DECISION-MAKING Aged Out No longer eligibl e based on patient's age to complete this topic MENINGOCOCCAL GROUPS A/C/Y/W VACCINE Aged Out No longer eligible b ased on patient's age to complete this topic Insurance [employer] Advance Directives * FULL RESUSCITATION (Latest Code Status on File) Date Activated Date Inactivated Comments 07/16/2011 6:36 PM 07/18/2011 1:03 AM Care Teams Geotechnicial Properties Technician Relationship Specialty Start Date End Date Mayra Aguilar MD NPI: [id number] [place] [phone] PCP - General Family Medicine 07/01/11
== END 2025-02-13 10:05 | disposition home or self-care (01) ==
LOC: ANHIMG 10:06
PROVIDERS: PCP Nurse Practitioner; Visit Provider Nurse Practitioner
DX: Z12.31 Encounter for screening mammogram for malignant neoplasm of breast (principal)
CPT/HCPCS: 77063; 77067

== ENCOUNTER 2025-04-24 13:50 | Outpatient (CLI) | payer MEDICARE, OTHER, SELFPAY ==
--- NOTE | ~2025-04-24 | DEXA_ITS ---
Bone Density Report Name: CHULA WALTERS Age: 69 Sex: Female Ethnicity: White Date of : 1955 Indication: osteopenia; height loss; Referring Provider: MARILYN, SEJAL Study: Bone densitometry was performed. Exam Date: April 24, 2025 Accession number: [id number] Bone Density: Region BMD T-score Z-score Classification AP Spine(L1-L4) 0.902 -1.3 0.6 Osteopenia Femoral Neck (Left) 0.597 -2.3 -0.6 Osteopenia Total Hip (Left) 0.781 -1.3 0.1 Osteopenia Femoral Neck (Right) 0.625 -2.0 -0.4 Osteopenia Total Hip (Right) 0.764 -1.5 -0.1 Osteopenia Total Hip Mean 0.772 -1.4 0.0 Osteopenia World Health Organization criteria for BMD impression classify patients as: Normal (T-score at or above -1.0), Osteopenia (T-score between -1.0 and -2.5), or Osteoporosis (T-score at or below -2.5). 10-year Fracture Risk(1): Major Osteoporotic Fracture 12% Hip Fracture 2.5% Reported Risk Factors: [place] (), Neck BMD=0.597, BMI=23.7 (1) FRAX(R) Version 3.08. Fracture probability calculated for an untreated patient. Fracture probability may be lower if the patient has received treatment. Previous Exams: Region Exam Age BMD T-score BMD Change BMD Change Date g/cm2 vs Baseline vs Previous AP Spine (L1-L4) 04/24/2025 69 0.902 -1.3 -0.001 (-0.2%) -0.004 (-0.5%) 11/28/2018 63 0.907 -1.3 0.003 (0.3%) -0.005 (-0.6%) 08/01/2016 61 0.912 -1.2 0.009 (0.9%) 0.009 (0.9%) 07/09/2014 59 0.904 -1.3 Total Hip(Left) 04/24/2025 69 0.781 -1.3 -0.039 (-4.8%) -0.096 (-11.0% 11/28/2018 63 0.877 -0.5 0.057 (7.0%)* 0.066 (8.2%)* 08/01/2016 61 0.811 -1.1 -0.009 (-1.1%) -0.009 (-1.1%) 07/09/2014 59 0.820 -1.0 Total Hip(Right) 04/24/2025 69 0.764 -1.5 -0.063 (-7.6%) -0.151 (-16.5% 11/28/2018 63 0.915 -0.2 0.088 (10.6%)* 0.070 (8.3%)* 08/01/2016 61 0.845 -0.8 0.018 (2.2%) 0.018 (2.2%) 07/09/2014 59 0.827 -0.9 *Denotes significance at 95% confidence level, LSC for AP Spine = 0.022 g/cm2, LSC for Total Hip = 0.027 g/cm2 Clinical Information Provided by Patient: Has used the following medications: Vitamin D Patient maximum height was 66 Menopause Age: 49 Onset of menses at age 15 Number of children 1 Impression: The patient has low bone mass, based on the Left Femoral Neck T-score. The patient has an estimated ten-year risk of hip fracture of 2.5% and an estimated ten-year risk of major fracture of 12%, based on the WHO FRAX algorithm. The BMD for the Total Hip(Left) decreased, changing by -11.0% since the last DXA exam. The BMD for the Total Hip(Right) decreased, changing by -16.5% since the last DXA exam. Discussion: BONE DENSITY IS LOW AT ONE OR MORE SKELETAL SITES. This patient's lowest T-score is low at one or more skeletal sites. It meets the World Health Organization's (WHO) criteria for ?low bone mass? (T-score between -1.0 and -2.5). The patient's 10-year risk of fracture as calculated by FRAX is less than the threshold where pharmacological therapy is recommended by the National Osteoporosis Foundation (NOF). However, all treatment decisions require clinical judgment and consideration of individual patient factors, including patient preferences, comorbidities, previous drug use, risk factors not captured in the FRAX model (e.g., frailty, falls, vitamin D deficiency, increased bone turnover, interval significant decline in bone density) and possible under or overestimation of fracture risk by FRAX. The patient should follow a healthful lifestyle (good nutrition with adequate calcium and vitamin D, and appropriate weight-bearing exercise). Follow-Up: Consider repeating this study in 2 years to reassess this patient's status, or sooner if there is some new clinical indication. Reported by: JUSTINA on 04/24/2025 2:31:00 PM. Reviewed, dictated and finalized at location A.
--- OUTSIDE RECORDS SUMMARY | 2025-04-24 15:24 | XMS_ITS | Clinical Summary ---
Author Organization [facility] Address [address] [facility] [place] [address] Care Team Providers Care Spa Manager/Esthetician Name Role Phone Mayra Aguilar MD Primary Care Provider Source Comments [facility],non-[facility] Affiliates and Associated Physician Practices is amultiple site organization consisting of ambulatory clinics and hospital sitesin [place], [place], [place] and [place]. This disclosure is being madepursuant to the Care Everywhere program and may not contain all information available regarding this patient. 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
--- OUTSIDE RECORDS SUMMARY | 2025-04-24 15:24 | XMS_ITS | Encounter Summary ---
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 Gender Identity Female 11/05/2023 10:40 AM CDT Sexual Orientation Straight 11/05/2023 10 :40 AM CDT documented as of this encounter Plan of Treatment Upcoming Encounters Date Type Department Care Team (Late st Contact Info) Description 05/07/2025 10:20 AM CD[facility] [address] [place] [address] Adilene Dillard MD [address] [address] documented as of this encounter Visit Diagnoses Not on filedocumented in this encounter Additional Health Concerns Assessment Noted Time PHQ-9 Depression Total Score: 0 12/07/19 25 10:23 AM CDT documented as of this encounter Care Teams Home Theater Installer Relationship Specialty Start Date End Date Adilene Dillard MD [address] [address] PCP - General INTERNAL MEDICINE 08/30/23 documented as of this encounter
--- OUTSIDE RECORDS SUMMARY | 2025-04-24 15:24 | XMS_ITS | Clinical Summary ---
Author Organization [facility] Address [facility] [place] [address] Care Team Providers Care Surgical Tech Name Role Phone Adilene Dillard MD Primary Care Provider [phone] Allergies Active Allergy Reactions Criticality Noted Date Comments Meperidine Nausea and Vomiting High 07/08/2011 Morphine Sulfate Headache Low 01/05/2019 Propranolol Other (see comment) 11/04/2023 Just did not feel well Medications triamcinolone (KENALOG) 0.1 % creamIndication s:Flexural eczema Apply topically 2 (two) times daily. 453.6 g 04/21/20 24 Active vitamin D2, ergocalciferol, (DRISDOL) 1.25 mg capsuleIndicati ons:Vitamin D deficiency Take 1 capsule (1.25 mg total) by mouth every 7 days. 12 capsule 3 11/07/19 25 Active escitalopram (LEXAPRO) 20 MG tabletIndicatio ns:BRANDON (generalized anxiety disorder),Mild episode of recurrent major depressive disorder Take 1 tablet (20 mg total) by mouth daily. Appointment with provider November 2024. 90 tablet 1 12/07/19 25 Active losartan (COZAAR) 25 MG tabletIndicatio ns:Primary hypertension Take 1 tablet (25 mg total) by mouth daily. 90 tablet 1 12/07/19 25 Active hydrOXYzine (VISTARIL) 25 MG capsuleIndicati ons:BRANDON (generalized anxiety disorder) TAKE 1 CAPSULE TWICE DAILY 180 capsule 02/19/20 25 Active methylPREDNISol one, KEMI, (MEDROL DOSEPAK) 4 MG tabletIndicatio ns:Poison melissa 6 TABLETS ON DAY ONE, 5 TABLETS DAY TWO, 4 TABLETS DAY THREE, 3 TABLETS DAY FOUR, 2 TABLETS DAY FIVE, AND 1 TABLET DAY SIX 1 each 03/12/20 25 Active escitalopram (LEXAPRO) 10 MG tabletIndicatio ns:BRANDON (generalized anxiety disorder),Mild episode of recurrent major depressive disorder TAKE 1 TABLET (10 MG TOTAL) BY MOUTH DAILY. TAKE A TOTAL OF 30 MG DAILY. 90 tablet 03/26/20 25 Active escitalopram (LEXAPRO) 10 MG tabletIndicatio ns:BRANDON (generalized anxiety disorder),Mild episode of recurrent major depressive disorder Take 1 tablet (10 mg total) by mouth daily. Take a total of 30 mg daily. 90 tablet 1 12/07/19 25 025 Discontinued Active Problems Problem Noted Date Diagnosed Date Primary hypertension 10/15/2023 Anxiety 01/05/2019 Encounters Date Type Department Care Team Description 03/12/2025 [facility] [address] [place], [place] [phone] Adilene Dillard MD Medication Request 03/11/2025 MyChart Message Enc [facility] 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 Gender Identity Female 11/05/2023 10:40 AM CDT [...] Description 05/07/2025 10:20 AM CDT Office Visit [facility] [place] [address] [address] [place] [address] Adilene Dillard MD [address] [place] [address] Health Maintenance Due Date Last Done Comments Mammogram Screening 1997 Dexa Scan (General) 2022 COVID-19 Vaccine ( season) 2025 06/15/2023, 07/13/2022, 01/09/2022, Additional history exists Annual [...] 50+ Years Completed 11/06/2024, 10/29/2023 PHQ-2 (Physician [place]) Completed 12/06/2024 Meningococcal B Vaccine Aged Out [...] 10:00 AM CDT) COLOGUARD RESULT Negative Negative [employer] (CLIA #:[id number]) Comment: NEGATIVE TEST RESULT. A negative Cologuard [...] (Ander Urias al, N Engl J Med 2014;370(14):9161-5718) The normal value (reference range) for this assay is negative. COLOGUARD RE-SCREENING RECOMMENDATION: Periodic colorectal cancer screening is an important part of preventive healthcare for asymptomatic individuals at average risk for colorectal cancer. Following a negative Cologuard result, the [place] [employer] and U.S. Multi-Society Task Force screening guidelines recommend a Cologuard re-screening interval of 3 years. References: [place] [employer] Guideline for Colorectal Cancer Screening: https://www.cancer.org/cancer/drhwe-bzfdpl-zyfuem/qqonmsamz-jgiwspgrj-agxhuip/ac s-rec ommendations.html.; Jeff DK, Nicole WHITEHEAD, Sidney MyrickK, Colorectal Cancer Screening: Recommendations for Physicians and Patients from the U.S. Multi-Society Task Force on Colorectal Cancer Screening , Am J Gastroenterology 2017; 112:0419-8317. TEST DESCRIPTION: Composite algorithmic analysis of stool [...] (Ander Urias al, N Engl J Med 2014;370(14):1160-2182.) Cologuard may produce a false negative or false positive result (no colorectal cancer or precancerous polyp present at colonoscopy follow up). A negative Cologuard test result does not guarantee the absence of CRC or advanced adenoma (pre-cancer). The current Cologuard screening interval is every 3 years. ([place] [employer] and U.S. Multi-Society Task Force). Cologuard performance data in a 10,000 patient pivotal study using colonoscopy as the reference method can be accessed at the following location: www.Cig[employer].Secret Recipe/results. Additional description of the Cologuard test process, warnings and precautions can be found at www.cologuard.com. STOOL STOOL SPECIMEN / Unknown 03/03/2024 10:00 AM CDT 03/04/2024 1:11 PM CDT Adilene Dillard MD BODY FLUIDS AND STOOLS ORDERABLE S Final Result Performing Organization Address City/[facility] Co de Phone Number [facility] ([address] [facility]) [address] [place] [address], [employer] (CLIA #:[id number]) [address] [place] [address] * HEPATITIS C ANTIBODY (10/29/2023 7:41 AM CDT) HEPATITIS C AB NON-REACTI VE NON-REACT TRUE 10/29/2023 6:25 PM CDT [facility] Comment: ANTIBODIES TO HCV NOT DETECTED. DOES NOT EXCLUDE THE POSSIBILITY OF EXPOSURE TO HCV. 10/29/2023 7:41 AM CDT Adilene Dillard MD LABORATORY Final Result Performing Organization Address [facility] Co de Phone Number [facility] [address] [place] [address], [phone] from Last 3 Months or Most Recently Relevant to Health Maintenance Insurance MEDICARE [facility] Care Teams Surgical Tech Relationship Specialty Start Date End Date Adilene Dillard MD [address] [facility] [address] [place] [address] PCP - General INTERNAL MEDICINE 08/30/23
--- OUTSIDE RECORDS SUMMARY | 2025-04-24 15:24 | XMS_ITS | Encounter Summary ---
Author Organization [facility] Address [address] [place] [address] Care Team Providers Care Support Engineer Name Role Phone Adilene Dillard MD Primary Care Provider [phone] Encounter Details Date Type Department Care Team (Late st Contact Info) Description 11/01/2023 [employer] Message Enc [facility] Medical [facility] - [address] [place], [place] [phone] 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 CONSULTING MANAGER Gender Identity Female 11/05/2023 10:40 AM CDT Sexual Orientation Straight 11/05/2023 10 :40 AM CDT documented as of this encounter Plan of Treatment Upcoming Encounters Date Type Department Care Team (Late st Contact Info) Description 05/07/2025 10:20 AM CDT Office Visit [facility] Medical [facility] - [address] [place], [place] [id number] Adilene Dillard MD [address] [place] [address] [place], [place] [phone] documented as of this encounter Visit Diagnoses Not on filedocumented in this encounter Additional Health Concerns Assessment Noted Time PHQ-9 Depression Total Score: 5 10/15/19 24 11:33 AM HEALTHCARE CONSULTING MANAGER documented as of this encounter Care Teams Support Engineer Relationship Specialty Start Date End Date Adilene Dillard MD [facility] [address] PCP - General INTERNAL MEDICINE 08/30/23 documented as of this encounter
== END 2025-04-24 13:51 | disposition home or self-care (01) ==
LOC: ANHFOHIMG 13:52
PROVIDERS: PCP Nurse Practitioner; Visit Provider Internal Medicine
DX: Z78.0 Asymptomatic menopausal state (principal); M85.88 Other specified disorders of bone density and structure, other site; M85.852 Other specified disorders of bone density and structure, left thigh; M85.851 Other specified disorders of bone density and structure, right thigh
CPT/HCPCS: 77080